=== PATIENT | female | born 1950 | race African-American/Black ===

== ENCOUNTER 2017-06-07 18:43 | Emergency (ER) | payer MEDICARE, OTHER ==
[~2017-06-07 18:43] MED LIST: FLUO-1 PO; GUAI100S6 PO; ZITH250T PO
[2017-06-07 18:59] VITALS: BP 159/70; PULSE 70; RESP 20
[2017-06-07 21:04] VITALS: BP 132/74; PULSE 68; RESP 18; TEMP 98; O2SAT 96
[2017-06-07] MEDS ORDERED: TRAM50 PO (21:12)
[2017-06-07] MEDS ORDERED: CYCL10TA PO (21:12)
--- NOTE | 2017-06-07 21:13 | PD ---
HPI . Right flank pain Chief Complaint: Musculoskeletal Complaint Time Seen by Provider: 20:40 Travel History International Travel<30 days: No Contact w/Intl Traveler<30days: No Traveled to known affect area: No History of Present Illness HPI This patient presents with a chief complaint of right flank pain. Onset was 2 weeks ago. Pain is exacerbated by movement. Tylenol gives no relief. No known injury. No associated symptoms such as cough or fever, shortness of breath, urinary tract symptoms. PFSH Past Medical History Depression: Yes Diminished Hearing: No Deep Vein Thrombosis: Yes (35 YRS AGO DVT IN LEFT LEG) Influenza Vaccination: No Menopausal: Yes : 1 Para: 1 Tubal Ligation: Yes Past Surgical History Hysterectomy: Yes (PARTIAL) Other Surgery: Yes (VEIN LIGATION LEFT LEG) Social History Alcohol Use: Yes (BEER ON WEEKENDS) Tobacco Use: No (QUIT 2000) Substance Use: No Allergies-Medications (Allergen,Severity, Reaction): Coded Allergies: naproxen (Unverified Allergy, Intermediate, HIVES, 12/28/16) Reported Meds & Prescriptions Reported Meds & Active Scripts Active Review of Systems Except as stated in HPI: all other systems reviewed are Neg General / Constitutional: No: Fever, Chills Respiratory: No: Cough, Shortness of Breath Gastrointestinal: No: Nausea, Vomiting, Diarrhea, Abdominal Pain Genitourinary: Positive: Flank Pain, No: Urgency, Frequency, Dysuria, Hematuria Physical Exam Narrative GENERAL: This patient clearly has pain with movement. SKIN: warm/dry. Normal color and turgor. HEAD: Normocephalic. EYES: Pupils equal and round. No scleral icterus. No injection or drainage. ENT: No nasal bleeding or discharge. Mucous membranes pink and moist. NECK: Trachea midline. Full range of motion without pain.. CARDIOVASCULAR: Regular rate and rhythm. Heart sounds are normal. RESPIRATORY: No accessory muscle use. Clear to auscultation. Breath sounds equal bilaterally. GASTROINTESTINAL: Abdomen soft. Nontender. Bowel sounds present. Nondistended. MUSCULOSKELETAL: No obvious deformities. Tenderness to palpation of the paraspinous muscles in the right low back. NEUROLOGICAL: Awake and alert. No obvious cranial nerve deficits. Motor grossly within normal limits. Normal speech. PSYCHIATRIC: Appropriate mood and affect; insight and judgment normal. Data Data Last Documented VS Vital Signs Date Time Temp Pulse Resp B/P (MAP) Pulse Ox O2 Delivery O2 Flow Rate FiO2 06/07/17 21:04 98.0 68 18 132/74 (93) 96 Room Air MDM Medical Decision Making Medical Screen Exam Complete: Yes Emergency Medical Condition: Yes Differential Diagnosis Differential diagnosis of flank pain includes but is not limited to kidney stone , pyelonephritis, musculoskeletal pain, PE Narrative Course This patient presents with a two-week history of right flank pain which is exacerbated by movement. Her physical exam supports the diagnosis of muscular low back pain. Have been constant for the last 2 weeks. Therefore, the likelihood of pyelonephritis, kidney stone etc. is negligible. She will be discharged home with treatment for musculoskeletal back pain. Diagnosis Primary Impression: Right flank pain Patient Instructions: Flank Pain (ED), General Instructions Med/Other Pt SpecificInfo: Prescription(s) given Scripts Tramadol (Ultram) 50 Mg Tab 50 MG PO Q4H Y for PAIN, #12 TAB 0 Refills Prov: Zayda Heard MD 06/07/17 Cyclobenzaprine (Flexeril) 10 Mg Tab 10 MG PO TID for Muscle Spasm, #30 TAB 0 Refills Prov: Zayda Heard MD 06/07/17 Disposition: 01 DISCHARGE HOME Condition: Stable Zayda Heard MD Jun 07, 2017 21:13
== END 2017-06-07 21:30 | disposition home or self-care (01) ==
LOC: PHED 18:43
DX: R10.9 Unspecified abdominal pain (principal)
CPT/HCPCS: 99284